=== PATIENT | male | born 1985 | race Caucasian/White ===

== ENCOUNTER 2020-10-16 11:47 | Emergency (ER) | payer BC ==
[~2020-10-16] VITALS: Ht 162.6 cm; Wt 73.5 kg
[2020-10-16 12:51] LABS: MEAN CORPUSCULAR HEMOGLOBIN 29.9 uug (23.8-33.4); MEAN CORPUSCULAR VOLUME 88.3 fL (73.0-96.2); PLATELET COUNT (AUTO) 267 K/uL (152-348)
[2020-10-16 13:01] LABS: POTASSIUM 4.1 mmol/L (3.5-5.1)
[2020-10-16 13:06] LABS: BILIRUBIN,DIRECT 0.1 mg/dL (0.0-0.2); BILIRUBIN,TOTAL 0.3 mg/dL (0.2-1.0); TOTAL PROTEIN, SERUM 7.7 g/dL (6.4-8.2)
--- NOTE | 2020-10-16 13:53 | NUR ---
Patient is resting comfortably on gurney while using his personal electronic device, NAD, pending disposition@ this time. Patient voided 3x since arriving in ER.
--- NOTE | 2020-10-16 15:20 | NUR ---
[email or web address] talking to patient and spouse re: plan of care & recommendation.
[2020-10-16] MEDS ORDERED: IV NORMAL SALINE 250 ML IV ONE (15:59)
[2020-10-16] MEDS ORDERED: IOHEXOL 350 100 ML INFUS..BTL ONE (15:59)
[2020-10-16] MEDS ORDERED: SWABABLE VALVE TRANSFER SET EA MC ONE (15:59)
[2020-10-16] MEDS ORDERED: IOHEXOL 300MG/ML 100 ML INFUS..BTL ONE (16:36)
--- NOTE | 2020-10-16 16:47 | NUR ---
Patient is back from CT scan, pending results and disposition.
--- NOTE | 2020-10-16 17:24 | NUR ---
IV removed. Catheter intact and site benign. Pressure and 4x4 gauze applied to site. No bleeding noted. Patient discharged to home in stable condition with brisk steady gait. Written and verbal after care instructions given to patient and spouse. Patient and family verbalized understanding and compliance of instructions. Stressed follow up with primary doctor and can feeder or return to ER for worsening s/s.
== END 2020-10-16 17:24 | disposition home or self-care (01) ==
LOC: ER 11:47
DX: R07.89 Other chest pain (principal); R20.2 Paresthesia of skin; R79.1 Abnormal coagulation profile
CPT/HCPCS: 36415; 70450; 71045; 71275; 80048; 80076; 84484 ×2; 85025; 85379; 93005; 99285; Q9967; 70030-TC; A4663; J7050